=== PATIENT | male | born 1980 | race Caucasian/White ===

== ENCOUNTER 2016-04-03 21:28 | Emergency (ER) | payer SELFPAY ==
--- NOTE | 2016-04-03 21:49 | ER Document Report ---
ED Medical Screen (RME) - General Chief Complaint: Facial Swelling Stated Complaint: FACIAL SWELLING Time seen by provider: 21:47 Mode of Arrival: Ambulatory Information source: Patient Notes: 35-year-old male presents to ED for an abscess to his left cheek 2 days and 2 abscesses to his right neck times 2 weeks. States he cut off all his hair and was trying to shave is where he got the first 2 abscesses. Patient denies history of MRSA I have greeted and performed a rapid initial assessment of this patient. A comprehensive ED assessment and evaluation of the patient, analysis of test results and completion of medical decision making process will be conducted by an additional ED providers. TRAVEL OUTSIDE OF THE [place] IN LAST 30 DAYS: No - Related Data Allergies/Adverse Reactions: No Known Allergies Allergy (Verified 03/13/15 11:55) Past Medical History - Past Medical History Cardiac Medical History: Denies: Hx Congestive Heart Failure, Hx Heart Attack, Hx Hypertension Pulmonary Medical History: Denies: Hx Asthma, Hx Bronchitis, Hx COPD, Hx Pneumonia, Hx Tuberculosis Neurological Medical History: Reports: Hx Migraine. Denies: Hx Seizures Renal/ Medical History: Denies: Hx Benign Prostatic Hyperplasia, Hx End Stage Renal Disease, Hx Kidney Stones GI Medical History: Denies: Hx Cirrhosis, Hx Gastroesophageal Reflux Disease, Hx Ulcer Musculoskeltal Medical History: Denies Hx Arthritis, Denies Hx Multiple Sclerosis Skin Medical History: Reports Hx Cellulitis - abscess Psychiatric Medical History: Denies: Hx Bipolar Disorder, Hx Depression, Hx Schizophrenia Past Surgical History: Reports: Hx Appendectomy, Hx Cholecystectomy - Immunizations Immunizations up to date: Yes Hx Diphtheria, Pertussis, Tetanus Vaccination: Yes Physical Exam - Vital signs Vitals: Temp Pulse Resp BP Pulse Ox 98.6 F 104 H 20 148/85 H 96 04/03/16 21:44 04/03/16 21:44 04/03/16 21:44 04/03/16 21:44 04/03/16 21:44 Course - Vital Signs Vital signs: Temp Pulse Resp BP Pulse Ox 98.6 F 104 H 20 148/85 H 96 04/03/16 21:44 04/03/16 21:44 04/03/16 21:44 04/03/16 21:44 04/03/16 21:44
[2016-04-04] MEDS ORDERED: SULFAMETHOXAZOLE/TRIMETHOPRIM 800-160 MG TABLET PO ONE (01:29)
[2016-04-04] MEDS ORDERED: ONDANSETRON ODT 4 MG TAB (6 TAB/DSPK) PO PRN (01:29)
[2016-04-04] MEDS ORDERED: HYDROCODONE/ACETAMINOPHEN 5-325 MG 6 TAB/DSPK PO PRN (01:29)
[2016-04-04] MEDS ORDERED: CEPHALEXIN 500 MG CAPSULE PO ONE (01:29)
--- NOTE | 2016-04-04 01:33 | ER Document Report ---
ED General - General Chief Complaint: Facial Swelling Stated Complaint: FACIAL SWELLING Mode of Arrival: Ambulatory Notes: Patient is a 35-year-old male with past medical history of recurrent abscesses and obesity who presents with both a right neck abscess as well as a left facial abscess. States both these areas have been present and worsening for the last 3 days. Does describe a severe, constant, unrelieved in pain. Nothing improves or worsens the pain other than touching the area which was noted to dramatically increase the pain. He has not seen his primary care physician regarding today's concerns. He has had similar abscesses in the past. Denies any constitutional symptoms or fever. TRAVEL OUTSIDE OF THE [place] IN LAST 30 DAYS: No - Related Data Allergies/Adverse Reactions: No Known Allergies Allergy (Verified 03/13/15 11:55) Past Medical History - General Information source: Patient - Social History Smoking Status: Never Smoker Chew tobacco use (# tins/day): No Frequency of alcohol use: Occasional Drug Abuse: None Family History: Reviewed & Not Pertinent Patient has suicidal ideation: No Patient has homicidal ideation: No - Past Medical History Cardiac Medical History: Denies: Hx Congestive Heart Failure, Hx Heart Attack, Hx Hypertension Pulmonary Medical History: Denies: Hx Asthma, Hx Bronchitis, Hx COPD, Hx Pneumonia, Hx Tuberculosis Neurological Medical History: Reports: Hx Migraine. Denies: Hx Seizures Renal/ Medical History: Denies: Hx Benign Prostatic Hyperplasia, Hx End Stage Renal Disease, Hx Kidney Stones, Hx Peritoneal Dialysis GI Medical History: Denies: Hx Cirrhosis, Hx Gastroesophageal Reflux Disease, Hx Ulcer Musculoskeltal Medical History: Denies Hx Arthritis, Denies Hx Multiple Sclerosis Skin Medical History: Reports Hx Cellulitis - abscess Psychiatric Medical History: Denies: Hx Bipolar Disorder, Hx Depression, Hx Schizophrenia Past Surgical History: Reports: Hx Appendectomy, Hx Cholecystectomy - Immunizations Immunizations up to date: Yes Hx Diphtheria, Pertussis, Tetanus Vaccination: Yes Review of Systems - Review of Systems Notes: Constitutional: Negative for fever. HENT: Negative for sore throat. Eyes: Negative for visual changes. Cardiovascular: Negative for chest pain. Respiratory: Negative for shortness of breath. Gastrointestinal: Negative for abdominal pain, vomiting or diarrhea. Genitourinary: Negative for dysuria. Musculoskeletal: Negative for back pain. Skin: Positive for multiple abscesses Neurological: Negative for headaches, weakness or numbness. 10 point ROS negative except as marked above and in HPI. Physical Exam - Vital signs Vitals: Temp Pulse Resp BP Pulse Ox 98.6 F 104 H 20 148/85 H 96 04/03/16 21:44 04/03/16 21:44 04/03/16 21:44 04/03/16 21:44 04/03/16 21:44 Interpretation: Hypertensive, Tachycardic Notes: PHYSICAL EXAMINATION: GENERAL: Well-appearing, well-nourished and in no acute distress. HEAD: Atraumatic, normocephalic. EYES: Pupils equal round and reactive to light, extraocular movements intact, sclera anicteric, conjunctiva are normal. No proptosis ENT: nares patent, oropharynx clear without exudates. Moist mucous membranes. There is a small left facial abscess from superior aspect of the left cheek with severe pain on palpation NECK: Normal range of motion, supple without lymphadenopathy, there is a 1 x 2 cm abscess on the right central neck. LUNGS: Breath sounds clear to auscultation bilaterally and equal. No wheezes rales or rhonchi. HEART: Regular rate and rhythm without murmurs ABDOMEN: Soft, nontender, normoactive bowel sounds. No guarding, no rebound. No masses appreciated. EXTREMITIES: Normal range of motion, no pitting or edema. No cyanosis. NEUROLOGICAL: No focal neurological deficits. Moves all extremities spontaneously and on command. PSYCH: Normal mood, normal affect. SKIN: Warm, Dry, normal turgor, no rashes or lesions noted. Course - Re-evaluation Re-evalutation: 04/04/16 01:28 Patient presents with a left facial abscess with some mild periorbital swelling no proptosis, entrapment, or conjunctival injection to suggest an actual orbital cellulitis. This area was incised and drained with expression of approximately 3 mL's of purulent drainage. His right neck also had an abscess which was likewise incised and drained with expression of 7 mL of pus. Patient will be started on both Bactrim and Keflex.At this time will discharge with return precautions and follow-up recommendations. Verbal discharge instructions given a the bedside and opportunity for questions given. Medication warnings reviewed. Patient is in agreement with this plan and has verbalized understanding of return precautions and the need for primary care follow-up in the next 24-72 hours. - Vital Signs Vital signs: Temp Pulse Resp BP Pulse Ox 98.9 F 98 16 138/62 H 100 04/04/16 02:10 04/04/16 02:10 04/04/16 02:10 04/04/16 02:10 04/04/16 02:10 Procedures - Incision and Drainage Left Face Type: Simple Anesthetic type: 1% Lidocaine mL's of anesthetic: 3 Blade size: 11 I&D procedure: Betadine prep applied Incision Method: Incision made by scalpel Amount/type of drainage: 2 cc purulent Notes: 04/04/16 03:52 Second abscess on right neck was again prepped with Betadine, local anesthesia with lidocaine. Incision made with scalpel with expression of 7 mL of purulent drainage. Discharge - Discharge Clinical Impression: Facial abscess, Neck abscess Condition: Good Disposition: HOME, SELF-CARE Additional Instructions: You were seen for an abscess that required drainage. Please clean this area with soap and water twice daily and apply a topical antibiotic. Dress the area after each cleaning. Please return if you develop fever, vomiting, the pain at the site worsens, you notice spreading redness from the area, you have any pain in your eye, difficulty moving you eye, or you have any other symptoms that are concerning to you. Take all antibiotics as directed. Follow-up with your doctor in the next 48 hours. Prescriptions: Cephalexin Monohydrate [Keflex 500 mg Capsule] 500 mg PO QID #28 capsule Sulfamethoxazole/Trimethoprim [Bactrim Ds Tablet] 2 tab PO BID #28 tablet Forms: Return to Work
[2016-04-04 02:48] VITALS: BP 138/62
== END 2016-04-04 02:10 | disposition home or self-care (01) ==
LOC: ER 21:28
PROC: 0H91XZZ Drainage of Face Skin, External Approach (ICD-10-PCS; principal; 2016-04-03)
PROC: 0H94XZZ Drainage of Neck Skin, External Approach (ICD-10-PCS; 2016-04-03)
DX: L02.01 Cutaneous abscess of face (principal); L02.11 Cutaneous abscess of neck; E66.9 Obesity, unspecified; Z68.41 Body mass index [BMI] 40.0-44.9, adult
CPT/HCPCS: 99283

== ENCOUNTER 2017-06-27 16:33 | Emergency (ER) | payer SELFPAY ==
--- NOTE | 2017-06-27 17:16 | EKG REPORT ---
SEVERITY:- ABNORMAL ECG - SINUS TACHYCARDIA INFERIOR INFARCT, AGE INDETERMINATE : Confirmed by: Will Denny 27-Jun-2017 17:15:14
--- NOTE | 2017-06-27 17:22 | ER Document Report ---
ED Medical Screen (RME) - General Chief Complaint: Chest Pain Stated Complaint: CHEST PAIN Time Seen by Provider: 06/27/17 17:18 Notes: RME DISCLOSURE I have seen this patient as part of a Rapid Medical Evaluation and, if applicable, placed any initially appropriate orders. The patient will be seen and fully evaluated, including a full history and physical exam, by a provider ( in Main ED or Fast Track) when a room becomes available. 37-year-old male here with complaints of midsternal nonradiating chest pain that started several days ago. The pain is not worse with torso/arm movement, exertion, position changes. The pain is worse with breathing. He has not tried taking anything for the symptoms. He has no prior history of PE/DVT. Denies any heavy lifting or traumatic injury. EXAM No chest wall tenderness to palpation Tachycardic TRAVEL OUTSIDE OF THE [place] IN LAST 30 DAYS: No - Related Data Allergies/Adverse Reactions: No Known Allergies Allergy (Verified 06/27/17 16:33) Past Medical History - Social History Chew tobacco use (# tins/day): No Frequency of alcohol use: None Drug Abuse: None - Past Medical History Cardiac Medical History: Denies: Hx Congestive Heart Failure, Hx Heart Attack, Hx Hypertension Pulmonary Medical History: Denies: Hx Asthma, Hx Bronchitis, Hx COPD, Hx Pneumonia, Hx Tuberculosis Neurological Medical History: Reports: Hx Migraine. Denies: Hx Seizures Renal/ Medical History: Denies: Hx Benign Prostatic Hyperplasia, Hx End Stage Renal Disease, Hx Kidney Stones, Hx Peritoneal Dialysis GI Medical History: Denies: Hx Cirrhosis, Hx Gastroesophageal Reflux Disease, Hx Ulcer Musculoskeltal Medical History: Denies Hx Arthritis, Denies Hx Multiple Sclerosis Skin Medical History: Reports Hx Cellulitis - abscess Psychiatric Medical History: Denies: Hx Bipolar Disorder, Hx Depression, Hx Schizophrenia Past Surgical History: Reports: Hx Appendectomy, Hx Cholecystectomy - Immunizations Immunizations up to date: Yes Hx Diphtheria, Pertussis, Tetanus Vaccination: Yes Physical Exam - Vital signs Vitals: Temp Pulse Resp BP Pulse Ox 98.0 F 108 H 16 139/92 H 96 06/27/17 16:44 06/27/17 16:44 06/27/17 16:44 06/27/17 16:44 06/27/17 16:44 Course - Vital Signs Vital signs: Temp Pulse Resp BP Pulse Ox 98.0 F 108 H 16 139/92 H 96 06/27/17 16:44 06/27/17 16:44 06/27/17 16:44 06/27/17 16:44 06/27/17 16:44
[2017-06-27] MEDS: ASPIRIN 81 MG TABLET, CHEWABLE PO ONE (17:34)
[2017-06-27 18:07] LABS: ABSOLUTE BASOPHILS # (AUTO) 0.1 10^3/uL (0.0-0.2); ABSOLUTE EOSINOPHILS # (AUTO) 0.1 10^3/uL (0.0-0.6); ABSOLUTE LYMPHOCYTES (AUTO) 1.2 10^3/uL (0.5-4.7); ABSOLUTE MONOCYTES (AUTO) 0.6 10^3/uL (0.1-1.4); ABSOLUTE NEUT (AUTO) 10.4 10^3/uL (1.7-8.2); BASOPHILS % (AUTO) 0.5 % (0-2); HEMATOCRIT 46.4 % (37.9-51.0); HEMOGLOBIN 15.7 g/dL (13.5-17.0); LYMPHOCYTES % (AUTO) 9.3 % (13-45); MEAN CORPUSCULAR HGB CONC 33.7 g/dL (32.0-36.0); MEAN CORPUSCULAR VOLUME 86 fl (80-97); MONOCYTES % (AUTO) 4.9 % (3-13); PLATELET COUNT 219 10^3/uL (150-450); RED CELL DISTRIBUTION WIDTH 13.9 % (11.5-14.0); SEGMENTED NEUTROPHILS % (AUTO) 84.3 % (42-78); TOTAL CELLS COUNTED % (AUTO) 100 %; WHITE BLOOD COUNT 12.4 10^3/uL (4.0-10.5)
[2017-06-27 18:30] LABS: ANION GAP 13 (5-19); BLOOD UREA NITROGEN 9 mg/dL (7-20); CALCIUM 9.2 mg/dL (8.4-10.2); CARBON DIOXIDE 27 mmol/L (22-30); CHLORIDE 100 mmol/L (98-107); GLUCOSE 375 mg/dL (75-110); POTASSIUM 4.3 mmol/L (3.6-5.0); SODIUM 140.3 mmol/L (137-145)
--- NOTE | 2017-06-27 18:46 | ER Document Report ---
ED General - General Chief Complaint: Chest Pain Stated Complaint: CHEST PAIN Time Seen by Provider: 06/27/17 17:18 Notes: Patient is a 37-year-old male with a past medical history of morbid obesity, access to primary care who presents with chest pain with associated shortness of breath. Patient states over the last 2 days he has had an intermittent, stabbing, aching pain to the left side of his chest. He states that it comes on for several minutes at a time and then spontaneously resolves. He states that he became concerned when he became more persistent today. He also notes intermittent associated shortness of breath. Nothing seemed to improve or worsen that symptom. He denies any his symptoms in the past. He has no history of known coronary artery disease, DVT or pulmonary embolus in the past. He does smoke. He states that overall his symptoms have improved since arriving to the emergency department. TRAVEL OUTSIDE OF THE [place] IN LAST 30 DAYS: No - Related Data Allergies/Adverse Reactions: No Known Allergies Allergy (Verified 06/27/17 16:33) Past Medical History - General Information source: Patient - Social History Smoking Status: Current Every Day Smoker Chew tobacco use (# tins/day): No Frequency of alcohol use: None Drug Abuse: None Lives with: Spouse/Significant other Family History: Reviewed & Not Pertinent Patient has suicidal ideation: No Patient has homicidal ideation: No - Past Medical History Cardiac Medical History: Denies: Hx Congestive Heart Failure, Hx Heart Attack, Hx Hypertension Pulmonary Medical History: Denies: Hx Asthma, Hx Bronchitis, Hx COPD, Hx Pneumonia, Hx Tuberculosis Neurological Medical History: Reports: Hx Migraine. Denies: Hx Seizures Renal/ Medical History: Denies: Hx Benign Prostatic Hyperplasia, Hx End Stage Renal Disease, Hx Kidney Stones, Hx Peritoneal Dialysis GI Medical History: Denies: Hx Cirrhosis, Hx Gastroesophageal Reflux Disease, Hx Ulcer Musculoskeltal Medical History: Denies Hx Arthritis, Denies Hx Multiple Sclerosis Skin Medical History: Reports Hx Cellulitis - abscess Psychiatric Medical History: Denies: Hx Bipolar Disorder, Hx Depression, Hx Schizophrenia Past Surgical History: Reports: Hx Appendectomy, Hx Cholecystectomy - Immunizations Immunizations up to date: Yes Hx Diphtheria, Pertussis, Tetanus Vaccination: Yes Review of Systems - Review of Systems Notes: Constitutional: Negative for fever. HENT: Negative for sore throat. Eyes: Negative for visual changes. Cardiovascular: Positive for chest pain. Respiratory: Positive for shortness of breath. Gastrointestinal: Negative for abdominal pain, vomiting or diarrhea. Genitourinary: Negative for dysuria. Musculoskeletal: Negative for back pain. Skin: Negative for rash. Neurological: Negative for headaches, weakness or numbness. 10 point ROS negative except as marked above and in HPI. Physical Exam - Vital signs Vitals: Temp Pulse Resp BP Pulse Ox 98.0 F 108 H 16 139/92 H 96 06/27/17 16:44 06/27/17 16:44 06/27/17 16:44 06/27/17 16:44 06/27/17 16:44 Interpretation: Tachycardic Notes: PHYSICAL EXAMINATION: GENERAL: Well-appearing, well-nourished and in no acute distress. HEAD: Atraumatic, normocephalic. EYES: Pupils equal round and reactive to light, extraocular movements intact, sclera anicteric, conjunctiva are normal. ENT: nares patent, oropharynx clear without exudates. Moist mucous membranes. NECK: Normal range of motion, supple without lymphadenopathy LUNGS: Breath sounds clear to auscultation bilaterally and equal. No wheezes rales or rhonchi. HEART: Regular rate and rhythm without murmurs Chest wall: Reproduction of pain on palpation of the central left chest wall ABDOMEN: Soft, morbidly obese abdomen, nontender, normoactive bowel sounds. No guarding, no rebound. No masses appreciated. EXTREMITIES: Normal range of motion, no pitting or edema. No cyanosis. NEUROLOGICAL: No focal neurological deficits. Moves all extremities spontaneously and on command. PSYCH: Normal mood, normal affect. SKIN: Warm, Dry, normal turgor, no rashes or lesions noted. Course - Re-evaluation Re-evalutation: 06/27/17 18:44 Presentation of chest pain in an otherwise well appearing patient. Low clinical suspicion for ACS given clinical history, exam, EKG without ST elevations or depressions, and negative initial troponin. HEART score less than or equal to 3. CT of the chest was ordered for the patient in triage prior to my assessment to evaluate for PE for which I have a low clinical suspicion. Clinical history appears to be most consistent with a musculoskeletal origin given the reproducibility of the pain on palpation of the chest wall patient's clinical history of intermittent symptoms, and is characterization of the pain. Will place a Lidoderm patch over the area, give 15 mg of Toradol and reassess 06/27/17 19:23 Patient's heart rate has improved, CT of the chest is normal. Pain is improved. Labs do show findings consistent with new onset diabetes which is consistent with the patient's morbid obesity. I have discussed the results of his elevated glucose and have started him on metformin and instructed him that he will need to follow-up with his primary care doctor for management of diabetes. At this time will discharge with return precautions and follow-up recommendations. Verbal discharge instructions given a the bedside and opportunity for questions given. Medication warnings reviewed. Patient is in agreement with this plan and has verbalized understanding of return precautions and the need for primary care follow-up in the next 24-72 hours. 06/27/17 19:24 - Vital Signs Vital signs: Temp Pulse Resp BP Pulse Ox 98.8 F 108 H 21 H 128/77 H 95 06/27/17 20:57 06/27/17 16:44 06/27/17 20:01 06/27/17 20:01 06/27/17 20:01 - Laboratory Result Diagrams: 06/27/17 17:51 06/27/17 17:51 Laboratory results interpreted by me: 06/27/17 06/27/17 17:51 17:51 WBC 12.4 H Seg Neutrophils % 84.3 H Lymphocytes % 9.3 L Absolute Neutrophils 10.4 H Glucose 375 H - Diagnostic Test Radiology reviewed: Reports reviewed - EKG Interpretation by Me Additional EKG results interpreted by me: 06/27/17 18:45 Sinus tachycardia. Rate 102. No ST elevations or depressions. QTC is 462. Discharge - Discharge Clinical Impression: Chest wall pain, Shortness of breath, Morbid obesity Type 2 diabetes mellitus Qualifiers: Diabetes mellitus residential insulin use: without intermediate project manager use Diabetes mellitus complication status: with unspecified complications Qualified Code(s): E11.8 - Type 2 diabetes mellitus with unspecified complications Condition: Good Disposition: HOME, SELF-CARE Additional Instructions: You were seen today for chest pain. The exact cause of your pain is unclear. However, based on your cardiac enzyme testing, chest x-ray, and EKG it does not appear that it is from an immediately life-threatening cause at this time. Although your testing here is normal is critical that you follow-up with your primary care physician for continued evaluation of this chest pain and possible stress testing. I recommended you see your physician within the next 24-48 hours to be evaluated for consideration of a stress test. Please return to emergency department immediately if you have worsening of your chest pain, shortness of breath, vomiting, become unable to exert yourself due to pain or difficulty breathing, you pass out, or have any pain that radiates into your arms, jaw, or back. Please also return if you have any additional symptoms that are concerning to you. Please also note that you do have diabetes. Your blood sugar was over 300 today and is likely related to your underlying morbid obesity. You will be started on metformin to help control your blood sugars but you will need to follow-up closely with her primary care doctor to get your blood sugar is more regulated. As we discussed today, please strongly consider losing weight. Your obesity will result in a shorter life and serious diagnoses including heart attacks, stroke, diabetes, high blood pressure, high cholesterol, kidney failure, and will also result in a much less enjoyable life due to these chronic conditions. Focus on gradual life style changes including removing sugared beverages and processed foods from your diet and at least 30 minutes of moderate activity daily. Try to target 4-5lbs of weight loss per month. Prescriptions: Metformin HCl [Glucophage 500 mg Tablet] 500 mg PO BID #60 tablet
--- NOTE | 2017-06-27 19:12 | RADIOLOGY REPORT (SQ) ---
EXAM DESCRIPTION: CTA CHEST COMPLETED DATE/TIME: 06/27/2017 6:42 pm REASON FOR STUDY: TACHYCARDIC, CP SOB, EVAL PE COMPARISON: None. TECHNIQUE: CT scan of the chest performed using helical scanning technique with dynamic intravenous contrast injection. Images reviewed with lung, soft tissue and bone windows. Reconstructed coronal and sagittal MPR images reviewed. Additional 3 dimensional post-processing performed to develop Maximal Intensity Projection images (NE P). All images stored on PACS. All CT scanners at this facility use dose modulation, iterative reconstruction, and/or weight based d osing when appropriate to reduce radiation dose to as low as reasonably achievable (ALARA). [facility]: Dose Right [facility]: CareDose [facility]: Dose Right [facility]: Teradose 4D [facility]: Smart BetBox CONTRAST TYPE AND DOSE: Contrast bolus optimized for the pulmonary arteries. Not diagnostic for the aorta. RENAL FUNCTION: None required. The patient is less than 50 years old. RADIATION DOSE: . LIMITATIONS: None. FINDINGS: LUNGS AND PLEURA: No masses, consolidation, pneumothorax. Few scattered small pulmonary n odules, some of which may be partially calcified. No pleural effusions, calcifications. AORTA AND GREAT VESSELS: No aneurysm. Contrast bolus not optimized for the aorta. HEART: No pericardial effusion. No significant coronary artery calcifications. PULMONARY ARTERIES: No emboli visualized in the main pulmonary arteries or the segmental branches. HILAR AND MEDIASTINAL STRUCTURES: No identified masses or abnormal nodes. HARDWARE: None in the chest. UPPER ABDOMEN: No significant findings. Limited exam. THYROID AND OTHER SOFT TISSUES: No masses. No adenopathy. BONES: No acute or significant finding. 3D MIPS: Confirm above findings. OTHER: No other significant finding. IMPRESSION: No emboli visualized in the main pulmonary arteries or the segmental branches. COMMENT: Quality ID # [id number]: Final reports with documentation of one or more dose reduction techniques (e.g., Automated exposure control, adjustment of the mA and/or kV according to patient size, use of iterative reconstruction technique) TECHNICAL DOCUMENTATION: JOB ID: [id number] [place]-72 2010 [employer]- All Rights Reserved Reading location - IP/workstation name: [email or web address]
[2017-06-27] MEDS: LIDOCAINE 5% (700 MG) TRANSDERMAL ADH..PATCH TP ONE (19:38)
[2017-06-27] MEDS: KETOROLAC TROMETHAMINE INJ/PF 30 MG/1 ML SDV IV ONE (19:38)
[2017-06-27] MEDS: NORMAL SALINE 1000 ML 1,000 ML IV ONE (19:38)
[2017-06-27] MEDS: METFORMIN HCL 500 MG TABLET PO ONE (19:39)
[2017-06-27 20:54] VITALS: BP 128/77
== END 2017-06-27 20:57 | disposition home or self-care (01) ==
LOC: ER 16:33
DX: R07.9 Chest pain, unspecified (principal); R06.02 Shortness of breath; E11.65 Type 2 diabetes mellitus with hyperglycemia; E66.01 Morbid (severe) obesity due to excess calories; Z68.41 Body mass index [BMI] 40.0-44.9, adult; R00.0 Tachycardia, unspecified; F17.200 Nicotine dependence, unspecified, uncomplicated
CPT/HCPCS: 93005; 99285; 96361; 96374; 36415; 85025; 80048; 84484; 85379; 71275; 93010; J1885; J7030

== ENCOUNTER 2017-07-05 05:41 | Emergency (ER) | payer SELFPAY ==
[2017-07-05] MEDS ORDERED: VANCOMYCIN HCL INJ 1000 MG VIAL IV ONE (06:14)
[2017-07-05] MEDS ORDERED: AMPICILLIN SOD/SULBACTAM 3 GM VIAL IV ONE (06:15)
[2017-07-05] MEDS ORDERED: LIDOCAINE 2% INJ (20 MG/ML) 20 ML MDV INJ ONE (06:15)
--- NOTE | 2017-07-05 06:21 | ER Document Report ---
ED Skin Rash/Insect Bite/Abscs - General Chief Complaint: Abscess Stated Complaint: POSSIBLE LUMP ON NECK Notes: 37-year-old male history diabetes presents to the emergency room complaining of several days of swelling to the back of his neck. The patient denies any fever or chills. Describes severe pressure to the back of his neck. States it is worse with movement of his neck or touching. He has noticed redness and swelling around that and some mild drainage. He denies any nausea vomiting. Denies chest pain denies shortness of breath. Describes the pain as severe aching worse with movement. Denies chest pain denies shortness of breath. Denies fever chills denies cough sore throat. TRAVEL OUTSIDE OF THE [place] IN LAST 30 DAYS: No - Related Data Allergies/Adverse Reactions: No Known Allergies Allergy (Verified 07/05/17 05:45) Past Medical History - Social History Smoking Status: Unknown if Ever Smoked Family History: Reviewed & Not Pertinent - Past Medical History Cardiac Medical History: Denies: Hx Congestive Heart Failure, Hx Heart Attack, Hx Hypertension Pulmonary Medical History: Denies: Hx Asthma, Hx Bronchitis, Hx COPD, Hx Pneumonia, Hx Tuberculosis Neurological Medical History: Reports: Hx Migraine. Denies: Hx Seizures Renal/ Medical History: Denies: Hx Benign Prostatic Hyperplasia, Hx End Stage Renal Disease, Hx Kidney Stones, Hx Peritoneal Dialysis GI Medical History: Denies: Hx Cirrhosis, Hx Gastroesophageal Reflux Disease, Hx Ulcer Musculoskeltal Medical History: Denies Hx Arthritis, Denies Hx Multiple Sclerosis Skin Medical History: Reports Hx Cellulitis - abscess Psychiatric Medical History: Denies: Hx Bipolar Disorder, Hx Depression, Hx Schizophrenia Past Surgical History: Reports: Hx Appendectomy, Hx Cholecystectomy - Immunizations Immunizations up to date: Yes Hx Diphtheria, Pertussis, Tetanus Vaccination: Yes Review of Systems - Review of Systems Constitutional: denies: No symptoms reported, Chills, Diaphoresis, Fever, Weakness Cardiovascular: denies: Chest pain Respiratory: denies: Cough, Short of breath Skin: Change in color, Other - Abscess Hematologic/Lymphatic: No symptoms reported Neurological/Psychological: No symptoms reported -: Yes All other systems reviewed and negative Physical Exam - Vital signs Vitals: Temp Pulse Resp BP Pulse Ox 97.7 F 87 20 135/93 H 97 07/05/17 05:45 07/05/17 05:45 07/05/17 05:45 07/05/17 05:45 07/05/17 05:45 - Notes Notes: GENERAL_APPEARANCE: well_nourished, alert, cooperative, appears uncomfortable VITALS: reviewed, see vital signs table. HEAD: no_swelling\tenderness on the head. EYES: PERRL, EOMI, conjunctiva_clear. NOSE: no_nasal_discharge. MOUTH: (-)decreased moisture. THROAT: no_tonsilar_inflammation, no_airway_obstruction. no_lymphadenopathy NECK: supple, posterior neck is swollen there is cellulitis present and appears to be an area of fluctuance just left of center of the spine approximately 3-4 cm in diameter. There is a little bit of redness overlying some mild cellulitis., (-)thyromegaly. BACK: no_back_tenderness. CHEST_WALL: no_chest_tenderness. LUNGS: no_wheezing, no_rales, no_rhonchi, (-)accessory muscle use, good air exchange bilateral. HEART: normal_rate, normal_rhythm, normal_S1, normal_S2, (-)S3, (-)S4, no_ murmur, no_rub. ABDOMEN: soft, no_abd_tenderness, (-)guarding, (-)rebound, no_organomegaly, no_ abd_masses. EXTREMITIES: good pulses in all_extremities, no_swelling\tenderness in the extremities, no_edema. SKIN: warm, dry, good_color, no_rash. MENTAL_STATUS: speech_clear, oriented_X_3, normal_affect, responds_ appropriately to questions. Course - Re-evaluation Re-evalutation: 07/05/17 06:20 Patient arrives with abscess to the back of his neck. We will give the patient a dose of IV antibiotics here check a white count. Will incise and drain the area questionable whether this is a cellulitis versus abscess versus early folliculitis of the hair in the back of his neck. We will try to incise and drain an area to express any pus. Will culture. 07/05/17 07:02 Area the neck was incised and drained. There is about 10 mL's of pus were able to be expressed. Quarter-inch iodoform packing was placed. Patient was advised to remove the packing in 2 days and get a recheck. The patient will be placed on Bactrim and Keflex for home. - Vital Signs Vital signs: Temp Pulse Resp BP Pulse Ox 97.7 F 87 20 135/93 H 97 07/05/17 05:45 07/05/17 05:45 07/05/17 05:45 07/05/17 05:45 07/05/17 05:45 - Laboratory Result Diagrams: 07/05/17 06:35 07/05/17 06:35 Laboratory results interpreted by me: 07/05/17 07/05/17 06:35 06:35 WBC 13.5 H Absolute Neutrophils 8.8 H Creatinine 0.51 L Glucose 205 H Procedures - Incision and Drainage Mid- Neck Time completed: 06:55 Type: Simple Anesthetic type: 2% Lidocaine Blade size: 11 I&D procedure: Chlorprep applied Incision Method: Incision made by scalpel Amount/type of drainage: 10 ml pus Notes: 07/05/17 07:01 1/ idoform packing placed Discharge - Discharge Clinical Impression: Neck abscess Condition: Good Disposition: HOME, SELF-CARE Instructions: Abscess ([facility]) Additional Instructions: Please return and have the packing removed in 48 hours. Prescriptions: Clindamycin HCl [Cleocin 300 mg Capsule] 300 mg PO QID #30 capsule Hydrocodone/Acetaminophen [[place] 5-325 mg Tablet] 1 tab PO QID PRN #12 tablet PRN Reason: Pain
[2017-07-05 06:50] LABS: ABSOLUTE BASOPHILS # (AUTO) 0.2 10^3/uL (0.0-0.2); ABSOLUTE EOSINOPHILS # (AUTO) 0.2 10^3/uL (0.0-0.6); ABSOLUTE LYMPHOCYTES (AUTO) 3.5 10^3/uL (0.5-4.7); ABSOLUTE MONOCYTES (AUTO) 0.8 10^3/uL (0.1-1.4); ABSOLUTE NEUT (AUTO) 8.8 10^3/uL (1.7-8.2); BASOPHILS % (AUTO) 1.3 % (0-2); EOSINOPHILS % (AUTO) 1.4 % (0-6); HEMATOCRIT 41.7 % (37.9-51.0); HEMOGLOBIN 14.1 g/dL (13.5-17.0); LYMPHOCYTES % (AUTO) 26.2 % (13-45); MEAN CORPUSCULAR HEMOGLOBIN 28.5 pg (27.0-33.4); MEAN CORPUSCULAR HGB CONC 33.7 g/dL (32.0-36.0); MEAN CORPUSCULAR VOLUME 85 fl (80-97); MONOCYTES % (AUTO) 6.2 % (3-13); PLATELET COUNT 307 10^3/uL (150-450); RED BLOOD COUNT 4.93 10^6/uL (4.35-5.55); RED CELL DISTRIBUTION WIDTH 13.7 % (11.5-14.0); SEGMENTED NEUTROPHILS % (AUTO) 64.9 % (42-78); TOTAL CELLS COUNTED % (AUTO) 100 %; WHITE BLOOD COUNT 13.5 10^3/uL (4.0-10.5)
[2017-07-05 07:03] LABS: ANION GAP 11 (5-19); BLOOD UREA NITROGEN 12 mg/dL (7-20); CALCIUM 9.3 mg/dL (8.4-10.2); CARBON DIOXIDE 27 mmol/L (22-30); CHLORIDE 104 mmol/L (98-107); GLUCOSE 205 mg/dL (75-110); POTASSIUM 4.2 mmol/L (3.6-5.0); SODIUM 141.7 mmol/L (137-145)
[2017-07-05 09:42] VITALS: BP 125/75
== END 2017-07-05 09:42 | disposition home or self-care (01) ==
LOC: ER 05:41
PROC: 0H94XZZ Drainage of Neck Skin, External Approach (ICD-10-PCS; principal; 2017-07-05)
DX: L02.11 Cutaneous abscess of neck (principal); Z90.49 Acquired absence of other specified parts of digestive tract
CPT/HCPCS: 99283; 96365; 96366; 96367; 36415; 87070; 87205; 85025; 87075; 87077; 80048; 10060; A6266; J3490; J0295; J3370

== ENCOUNTER 2018-01-26 20:08 | Emergency (ER) | payer SELFPAY ==
--- NOTE | 2018-01-26 20:37 | ER Document Report ---
ED General - General Chief Complaint: Abscess Stated Complaint: LUMP ON NECK Time Seen by Provider: 01/26/18 20:35 TRAVEL OUTSIDE OF THE [place] IN LAST 30 DAYS: No - HPI Notes: Patient is a 37-year-old male with a history of borderline diabetes, not medicated, who presents to the ED complaining of an abscess/pain to the left posterior neck times 1 week. Patient states that he has had an abscess that needed cut open on the right side of his neck. Patient states that movement makes his pain worse. He has not noticed any purulence or streaks. He denies any drug allergies or IV drug abuse. Patient believes he may have a history of MRSA, but is not sure. He is eating and drinking without any difficulties otherwise. He is urinating normally. Denies any headache, fever, URI, sore throat, chest pain, palpitations, syncope, cough, shortness of breath, wheeze, dyspnea, abdominal pain, nausea/vomiting/diarrhea, urinary retention, dysuria, hematuria. - Related Data Allergies/Adverse Reactions: No Known Allergies Allergy (Verified 07/05/17 05:45) Past Medical History - Social History Smoking Status: Unknown if Ever Smoked Family History: Reviewed & Not Pertinent Patient has suicidal ideation: No Patient has homicidal ideation: No - Past Medical History Cardiac Medical History: Denies: Hx Congestive Heart Failure, Hx Heart Attack, Hx Hypertension Pulmonary Medical History: Denies: Hx Asthma, Hx Bronchitis, Hx COPD, Hx Pneumonia, Hx Tuberculosis Neurological Medical History: Reports: Hx Migraine. Denies: Hx Seizures Renal/ Medical History: Denies: Hx Benign Prostatic Hyperplasia, Hx End Stage Renal Disease, Hx Kidney Stones, Hx Peritoneal Dialysis GI Medical History: Denies: Hx Cirrhosis, Hx Gastroesophageal Reflux Disease, Hx Ulcer Musculoskeletal Medical History: Denies Hx Arthritis, Denies Hx Multiple Sclerosis Skin Medical History: Reports Hx Cellulitis - abscess Psychiatric Medical History: Denies: Hx Bipolar Disorder, Hx Depression, Hx Schizophrenia Past Surgical History: Reports: Hx Appendectomy, Hx Cholecystectomy - Immunizations Immunizations up to date: Yes Hx Diphtheria, Pertussis, Tetanus Vaccination: Yes Review of Systems - Review of Systems -: Yes All other systems reviewed and negative Physical Exam - Vital signs Vitals: Temp Pulse Resp BP Pulse Ox 98.4 F 113 H 18 143/89 H 97 01/26/18 20:11 01/26/18 20:11 01/26/18 20:11 01/26/18 20:11 01/26/18 20:11 - Notes Notes: PHYSICAL EXAMINATION: GENERAL: Well-appearing, well-nourished and in no acute distress. HEAD: Atraumatic, normocephalic. EYES: Pupils equal round and reactive to light, extraocular movements intact, sclera anicteric, conjunctiva are normal. ENT: Nares patent and without discharge. oropharynx clear without exudates. No tonsilar hypertrophy or erythema. Moist mucous membranes. NECK: + abscess/fluctuance to the posterior and left lateral neck. + erythema, induration, and tenderness associated. No obvious streaks or purulence. LUNGS: Breath sounds clear to auscultation bilaterally and equal. No wheezes rales or rhonchi. HEART: Regular rate and rhythm without murmurs, rubs, gallops. Musculoskeletal: FROM to passive/active. Strength 5+/5. Extremities: No cyanosis, clubbing, or edema b/l. Peripheral pulses 2+. Capillary refill less than 3 seconds. NEUROLOGICAL: Cranial nerves grossly intact. Normal speech, normal gait. Normal sensory, motor exams PSYCH: Normal mood, normal affect. SKIN: see above. Course - Re-evaluation Re-evalutation: 01/26/18 20:36 Dr. Robertson was consulted who also eval'd the patient. Recommended consult with Surgery, possible imaging and labs. Spoke with Dr. Paredes who will come eval the patient. He would like labs ordered, but will eval before imaging. Pt in agreement with plan. Last NPO was 2 hours ago, dinner. 01/26/18 22:55 Dr. Paredes performed I&D at bedside, reported to be large/deep abscess. Packing was placed. He would like antibiotics prescribed and f/u with him next week in the office as well as some pain medicine. Wound instructions per surgeon otherwise. CBC shows elevated white count. CMP otherwise unremarkable aside from elevated glucose. Patient is aware of his elevated glucose and does monitor sugars at home. Patient is nontoxic-appearing and is tolerating p.o. without difficulty. No further labs or imaging warranted at this time. Recheck with the surgeon's office next week. Return to the ED with any other worsening/concerning symptoms otherwise as reviewed and discharge. Patient is in agreement. - Vital Signs Vital signs: Temp Pulse Resp BP Pulse Ox 98.4 F 113 H 18 143/89 H 97 01/26/18 20:11 01/26/18 20:11 01/26/18 20:11 01/26/18 20:11 01/26/18 20:11 - Laboratory Result Diagrams: 01/26/18 20:50 01/26/18 21:40 Laboratory results interpreted by me: 01/26/18 01/26/18 20:50 21:40 WBC 17.9 H Absolute Neutrophils 13.0 H Absolute Basophils 0.3 H Glucose 274 H AST 14 L Discharge - Discharge Clinical Impression: Neck abscess Condition: Stable Disposition: HOME, SELF-CARE Instructions: Cephalexin ([facility]), Trimethoprim-Sulfa ([facility]), Post Incision and Drainage Additional Instructions: Wound instructions per the surgeon otherwise: Keep the skin clean Wash with soap and water Tylenol/ibuprofen if needed Triple antibiotic ointment daily Take medication as directed Monitor for any worsening symptoms Recheck with your PCM in 3-[address] Paredes next week as instructed for follow-up Return to the ED with any worsening symptoms and/or development of fever, headache, chest pain, palpitations, syncope, shortness of breath, trouble breathing, abdominal pain, n/v/d, abscess, purulent discharge, red streaks, worsening swelling, or other worsening symptoms that are concerning to you. Prescriptions: Cephalexin Monohydrate [Keflex 500 mg Capsule] 500 mg PO BID #20 capsule Oxycodone HCl/Acetaminophen [Percocet 5-325 mg Tablet] 1 tab PO TID #12 tab Sulfamethoxazole/Trimethoprim [Bactrim Ds Tablet] 1 each PO BID #20 tablet Forms: Elevated Blood Pressure Referrals: ALBERT PAREDES MD [ACTIVE STAFF] - 01/31/18
[2018-01-26 21:10] LABS: ABSOLUTE BASOPHILS # (AUTO) 0.3 10^3/uL (0.0-0.2); ABSOLUTE EOSINOPHILS # (AUTO) 0.1 10^3/uL (0.0-0.6); ABSOLUTE LYMPHOCYTES (AUTO) 3.4 10^3/uL (0.5-4.7); BASOPHILS % (AUTO) 1.4 % (0-2); EOSINOPHILS % (AUTO) 0.8 % (0-6); HEMATOCRIT 45.9 % (37.9-51.0); HEMOGLOBIN 15.7 g/dL (13.5-17.0); LYMPHOCYTES % (AUTO) 19.2 % (13-45); MEAN CORPUSCULAR HEMOGLOBIN 29.2 pg (27.0-33.4); MEAN CORPUSCULAR HGB CONC 34.1 g/dL (32.0-36.0); MEAN CORPUSCULAR VOLUME 86 fl (80-97); MONOCYTES % (AUTO) 5.8 % (3-13); PLATELET COUNT 243 10^3/uL (150-450); RED BLOOD COUNT 5.35 10^6/uL (4.35-5.55); RED CELL DISTRIBUTION WIDTH 13.7 % (11.5-14.0); SEGMENTED NEUTROPHILS % (AUTO) 72.8 % (42-78); TOTAL CELLS COUNTED % (AUTO) 100 %; WHITE BLOOD COUNT 17.9 10^3/uL (4.0-10.5)
[2018-01-26] MEDS ORDERED: LIDOCAINE 1% INJ-PF (10 MG/ML) 30 ML SDV ONE (21:33)
--- NOTE | 2018-01-26 21:49 | PDOC CONSULTATION ---
Consultation Consult Date: 01/26/18 Consult reason:: neck abscess History of Present Illness Patient complains of: neck pain, swelling, fluctuance History of Present Illness: BERTIN GONZALES is a 37 year old male seen at the request of the ER physician. The pt reports a one week h/o pain, swelling, erythema and fluctuance of the posterior neck. He has had I&D's of sebaceous cysts in the past. The pt denies fevers or chills. His only real complaint is pain. The pain is severe, and throbbing. He rates it 8/10. It does not radiate. Nothing makes it better. Palpation makes it worse. The pt is diabetic. Past Medical History Cardiac Medical History: Denies: Congestive Heart Failure, Myocardial Infarction, Hypertension Pulmonary Medical History: Denies: Asthma, Bronchitis, Chronic Obstructive Pulmonary Disease (COPD), Pneumonia, Tuberculosis Neurological Medical History: Reports: Migraine Denies: Seizures Endocrine Medical History: Reports: Diabetes Mellitus Type 2 Renal/ Medical History: Denies: End Stage Renal Disease GI Medical History: Denies: Cirrhosis, Gastroesophageal Reflux Disease Musculoskeltal Medical History: Denies: Arthritis Psychiatric Medical History: Denies: Bipolar Disorder, Depression Hematology: Denies: Anemia, Bleeding Tendencies Past Surgical History Past Surgical History: Reports: Appendectomy, Cholecystectomy Social History Smoking Status: Unknown if Ever Smoked Frequency of Alcohol Use: Rare Family History Family History: Reviewed & Not Pertinent Parental Family History Reviewed: Yes Children Family History Reviewed: Yes Sibling(s) Family History Reviewed.: Yes Medication/Allergy Home Medications: Metformin HCl [Glucophage 500 mg Tablet] 500 mg PO BID #60 tablet 06/27/17 Clindamycin HCl [Cleocin 300 mg Capsule] 300 mg PO QID #30 capsule 07/05/17 Hydrocodone/Acetaminophen [[place] 5-325 mg Tablet] 1 tab PO QID PRN #12 tablet Allergies/Adverse Reactions: No Known Allergies Allergy (Verified 07/05/17 05:45) Review of Systems Constitutional: PRESENT: chills, fever(s). ABSENT: anorexia Eyes: ABSENT: visual disturbances Ears: ABSENT: hearing changes Nose, Mouth, and Throat: ABSENT: sore throat Cardiovascular: ABSENT: chest pain, palpitations Respiratory: ABSENT: cough Gastrointestinal: ABSENT: abdominal pain, nausea, vomiting Genitourinary: ABSENT: dysuria Musculoskeletal: ABSENT: back pain Integumentary: PRESENT: other - fluctuance, erythema, pain to posterior neck. ABSENT: rash Neurological: ABSENT: confusion, convulsions, dizziness Psychiatric: ABSENT: anxiety, depression Endocrine: ABSENT: cold intolerance, heat intolerance Hematologic/Lymphatic: ABSENT: easy bleeding, easy bruising Physical Exam Vital Signs: Temp Pulse Resp BP Pulse Ox 98.4 F 113 H 18 143/89 H 97 01/26/18 20:11 01/26/18 20:11 01/26/18 20:11 01/26/18 20:11 01/26/18 20:11 Intake & Output 01/25/18 01/26/18 01/27/18 06:59 06:59 06:59 Weight 149.3 kg General appearance: PRESENT: no acute distress Head exam: PRESENT: atraumatic, normocephalic Eye exam: ABSENT: EOMI, PERRLA, scleral icterus Mouth exam: PRESENT: moist Teeth exam: ABSENT: poor dentation Neck exam: PRESENT: tenderness - posterior Respiratory exam: PRESENT: clear to auscultation holly, unlabored. ABSENT: chest wall tenderness, tachypnea, wheezes Cardiovascular exam: PRESENT: RRR Pulses: PRESENT: normal radial pulses Vascular exam: PRESENT: normal capillary refill. ABSENT: pallor GI/Abdominal exam: PRESENT: soft. ABSENT: distended, firm, guarding, tenderness Rectal exam: PRESENT: deferred Extremities exam: ABSENT: clubbing Musculoskeletal exam: ABSENT: deformity Neurological exam: PRESENT: alert, awake, oriented to person, oriented to place , oriented to time, oriented to situation, CN II-XII grossly intact Psychiatric exam: ABSENT: agitated, anxious, depressed Focused psych exam: ABSENT: delusional Skin exam: PRESENT: erythema - post neck, other - fluctuant mass to posterior neck Results Laboratory Results: 01/26/18 20:50 01/26/18 20:50 WBC 17.9 H RBC 5.35 Hgb 15.7 Hct 45.9 MCV 86 MCH 29.2 MCHC 34.1 RDW 13.7 Plt Count 243 Seg Neutrophils % 72.8 Lymphocytes % 19.2 Monocytes % 5.8 Eosinophils % 0.8 Basophils % 1.4 Absolute Neutrophils 13.0 H Absolute Lymphocytes 3.4 Absolute Monocytes 1.0 Absolute Eosinophils 0.1 Absolute Basophils 0.3 H Assessment & Plan - Diagnosis (1) Neck abscess Is this a current diagnosis for this admission?: Yes - Plan Summary Plan Summary: 37 y/o M with a h/o sebaceous cyst to the posterior neck. Over the last week it has enlarged and become painful. It is fluctuant. The pt has had it drained before. I have discussed options with the pt. He has requested bedside I&D. He wishes to return home with abx. His significant other has agreed to pack it for him. I will plan bedside I&D tonight. Oral abx as outpt.
[2018-01-26 22:08] LABS: ALANINE AMINOTRANSFERASE 21 U/L (21-72); ALBUMIN 4.1 g/dL (3.5-5.0); ALKALINE PHOSPHATASE 87 U/L (38-126); ANION GAP 14 (5-19); ASPARTATE AMINO TRANSFERASE 14 U/L (17-59); BILIRUBIN,DIRECT 0.2 mg/dL (0.0-0.4); BILIRUBIN,TOTAL 0.2 mg/dL (0.2-1.3); BLOOD UREA NITROGEN 14 mg/dL (7-20); CALCIUM 9.2 mg/dL (8.4-10.2); CARBON DIOXIDE 26 mmol/L (22-30); CHLORIDE 99 mmol/L (98-107); GLUCOSE 274 mg/dL (75-110); POTASSIUM 4.2 mmol/L (3.6-5.0); SODIUM 139.3 mmol/L (137-145); TOTAL PROTEIN 8.1 g/dL (6.3-8.2)
--- NOTE | 2018-01-26 22:27 | Operative Report ---
Nonrecallable Operative Report DATE OF SURGERY: 01/26/18 PREOPERATIVE DIAGNOSIS: Complex posterior neck abscess POSTOPERATIVE DIAGNOSIS: Same as above OPERATION: Incision and drainage of complex posterior neck abscess. SURGEON: ALBERT GRIFFITHS ANESTHESIA: Local COMPLICATIONS: None apparent ESTIMATED BLOOD LOSS: 10 cc PROCEDURE: Drains/implants: 4 x 4 gauze. Procedure in detail: After informed consent was obtained, the patient was laid in the prone position in the emergency department. The area of the posterior neck was prepped and draped in a normal sterile fashion. 1% lidocaine was used to infiltrate the skin of the posterior neck. The incision was then created in the area of maximal fluctuance. A large amount of purulent material was encountered. All the purulent material was expressed. Loculations were broken using a hemostat. The wound was irrigated with copious amounts of saline solution. The wound was then packed with a 4 x 4 gauze. A dressing was placed , and the procedure was concluded. All sponge, instrument, and needle counts were correct. Condition: Stable.
[2018-01-26] MEDS ORDERED: SULFAMETHOXAZOLE/TRIMETHOPRIM 800-160 MG TABLET PO ONE (23:00)
[2018-01-26] MEDS ORDERED: CEPHALEXIN 500 MG CAPSULE PO ONE (23:00)
[2018-01-26 23:21] VITALS: BP 140/79
== END 2018-01-26 23:50 | disposition home or self-care (01) ==
LOC: ER 20:08
DX: L02.11 Cutaneous abscess of neck (principal); D72.829 Elevated white blood cell count, unspecified; R73.9 Hyperglycemia, unspecified
CPT/HCPCS: 99284; 36415; 87040; 85025; 80053; 10061; J3490